=== PATIENT | male | born 1990 | race Caucasian/White ===

== ENCOUNTER 2017-04-15 01:31 | Emergency (ER) | payer OTHER ==
[~2017-04-15] VITALS: Ht 177.8 cm; Wt 65.0 kg
[2017-04-15 01:33] VITALS: BP 133/84; PULSE 113; RESP 16; TEMP 100.7; O2SAT 98
--- NOTE | 2017-04-15 01:53 | PD ---
HPI Chief Complaint: Cold / Flu Symptoms Time Seen by Provider: 01:42 Travel History International Travel<30 days: No Contact w/Intl Traveler<30days: No Traveled to known affect area: No History of Present Illness HPI 26-year-old white male presents to department for evaluation of fever. He states that he's been sick now for the past 3 days. He has had intermittent fever and chills, headache, ear congestion, sore throat and cough. Positive myalgias and arthralgias. He states that he takes ibuprofen when he feels he needs it. He does not take it on a regular basis. He is taken it once earlier today. He states that he is had a high fever . Patient denies any nausea vomiting. No numbness, tingling or weakness. No rashes. PFSH Past Medical History Medical History: Denies Significant Hx Diminished Hearing: No Headaches: Yes Neurologic: Yes ("SEVERAL" TBIs) Psychiatric: Yes (PTSD) Past Surgical History Eye Surgery: Yes (RIGHT EYE SURGERY) Other Surgery: Yes (NECK, R SHOULDER, L SPINE, FACIAL SURGERIES) Social History Alcohol Use: Yes (OCCASSIONALLY) Tobacco Use: No Substance Use: No Allergies-Medications (Allergen,Severity, Reaction): Coded Allergies: No Known Allergies (Verified Adverse Reaction, Unknown, 04/15/17) Reported Meds & Prescriptions Reported Meds & Active Scripts Active No Active Prescriptions or Reported Medications Review of Systems Except as stated in HPI: all other systems reviewed are Neg Physical Exam Narrative GENERAL: Well-developed, well-nourished in no acute distress. Nontoxic appearing. HEAD: Normocephalic, atraumatic. EYES: Pupils equal round and reactive. Extraocular motions intact. No scleral icterus. No injection or drainage. ENT: TMs clear without erythema. The external auditory canals clear. Nose: clear . Posterior pharynx is pink and moist. No tonsillar edema or exudate. Uvula midline. Airway patent. NECK: Trachea midline.Supple, nontender, moves head freely. No central bony tenderness or spasm. Positive posterior cervical adenopathy CARDIOVASCULAR: Regular rate and rhythm without murmurs, gallops, or rubs. RESPIRATORY: Clear to auscultation. Breath sounds equal bilaterally. No wheezes , rales, or rhonchi. GASTROINTESTINAL: Abdomen soft, non-tender, nondistended. No hepato-splenomegaly , or palpable masses. No guarding. EXTREMITIES: No clubbing, cyanosis, or edema. No joint tenderness, effusion, or edema noted. BACK: Nontender without deformity or crepitance. No flank tenderness. Data Data Last Documented VS Vital Signs Date Time Temp Pulse Resp B/P (MAP) Pulse Ox O2 Delivery O2 Flow Rate FiO2 04/15/17 01:33 100.7 113 16 133/84 (100) 98 Room Air Orders Orders Acetaminophen (Tylenol) (04/15/17 02:00) Ed Discharge Order (04/15/17 01:49) MDM Medical Decision Making Medical Screen Exam Complete: Yes Emergency Medical Condition: Yes Medical Record Reviewed: Yes Differential Diagnosis MDM: High Differential diagnoses: Strep throat, viral pharyngitis, mono, influenza, and influenza-like illness Narrative Course Patient is given 1 g of Tylenol by mouth. The patient's exam is unremarkable. He does not appear to be toxic in any way shape or form. He is normally conversive. He smiles and laughs at times. He states that he would not normally be here except at the insistence of his family and friends. This is influenza-like illness. Diagnosis Primary Impression: Influenza-like illness Patient Instructions: General Instructions Additional Instructions: Rest. Increase fluids. Alternate to Tylenol with 3 Advil every 3 hours for the next few days. Follow-up with a primary care doctor in next 3-5 days. Return to the ER if any problems. Med/Other Pt SpecificInfo: No Meds Exist/No RX given Scripts No Active Prescriptions or Reported Meds Disposition: 01 DISCHARGE HOME Condition: Stable Lit Marques Apr 15, 2017 01:53
[2017-04-15] MEDS ORDERED: ACETAMINOPHEN 500 MG CPLT PO ONE (02:00)
== END 2017-04-15 02:21 | disposition home or self-care (01) ==
LOC: NEPD 01:31
DX: J11.1 Influenza due to unidentified influenza virus with other respiratory manifestations (principal)
CPT/HCPCS: 99282

== ENCOUNTER 2017-06-19 02:36 | Emergency (ER) | payer OTHER ==
[~2017-06-19] VITALS: Ht 177.8 cm; Wt 70.0 kg
[2017-06-19 02:39] VITALS: BP 138/92; PULSE 70; RESP 12; TEMP 98.3; O2SAT 97
== END 2017-06-19 03:06 | disposition left against medical advice (07) ==
LOC: NEPD 02:36
DX: Z00.8 Encounter for other general examination (principal); Z53.21 Procedure and treatment not carried out due to patient leaving prior to being seen by health care provider
CPT/HCPCS: 99281